=== PATIENT | male | born 1945 | race African-American/Black ===

== ENCOUNTER 2017-07-12 11:07 | Emergency (ER) | payer MEDICARE, OTHER ==
[~2017-07-12] VITALS: Ht 180.3 cm; Wt 85.3 kg
[~2017-07-12 11:07] MED LIST: AMLO10TA4 PO; ASPI325T2 PO; LISI10TA5 PO; METO100T PO; SIMV40TA2 PO
--- NOTE | 2017-07-12 11:10 | NUR ---
PT BIBRA FROM HOME TO ER BED 10. PT STATES FELT DIZZY AND FELL BACKWARDS HITTING HIS HEAD IN THE CONCRETE. PT DENIES HEADACHE, NO OBVIOUS TRAUMA. DENIES CHEST PAIN. 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 GOWNED AND PLACED ON MONITOR. AWAITING MD ERAZO.
--- NOTE | 2017-07-12 11:12 | NUR ---
DR LEBLANC AT BEDSIDE FOR EVAL.
--- NOTE | 2017-07-12 11:55 | NUR ---
RADIOLOGY AT BEDSIDE FOR EVAL.
[2017-07-12] MEDS ORDERED: IV NS 0.9% 1,000 ML BAG IV ONE (12:00)
[2017-07-12 12:15] LABS: BASOPHILS % (AUTO) 0.3 % (0.0-2.0); EOSINOPHILS # (AUTO) 0.1 /CMM (0.0-0.7); EOSINOPHILS % (AUTO) 1.4 % (0.0-6.0); HEMATOCRIT 43 % (39-51); HEMOGLOBIN 14.1 g/dL (13.5-17.5); LYMPHOCYTES % (AUTO) 21.4 % (20.0-44.0); MEAN CORPUSCULAR HEMOGLOBIN 29 PG (26.0-33.0); MEAN CORPUSCULAR HGB CONC 33 g/dl (31.0-36.0); MEAN CORPUSCULAR VOLUME 88 fL (80-96); MONOCYTES # (AUTO) 0.5 /CMM (0.1-1.30); NEUTROPHILS # (AUTO) 3.3 /CMM (1.8-8.9); NEUTROPHILS % (AUTO) 66.9 % (43.0-81.0); PLATELET COUNT (AUTO) 189 /CMM (150-450); RDW COEFFICIENT OF VARIATION 14.7 (11.5-15.0); WHITE BLOOD COUNT (AUTO) 4.9 K/uL (4.3-11.0)
[2017-07-12 12:41] LABS: TROPONIN I < 0.017 ng/mL (0.00-0.056)
[2017-07-12 12:57] LABS: PROTHROMBIN TIME 10.4 SECS (9.5-12.7)
[2017-07-12 12:59] LABS: ALANINE AMINOTRANSFERASE 17 U/L (12-78); ALBUMIN 3.4 g/dL (3.4-5.0); ALKALINE PHOSPHATASE 54 U/L (46-116); ASPARTATE AMINOTRANSFERASE 13 U/L (15-37); BILIRUBIN,DIRECT 0.1 mg/dL (0.0-0.2); BILIRUBIN,TOTAL 0.7 mg/dL (0.2-1.0); CALCIUM, SERUM 8.9 mg/dL (8.5-10.1); CARBON DIOXIDE 28 mmol/L (21-32); CHLORIDE 110 mmol/L (98-107); GLUCOSE 94 mg/dL (74-106); POTASSIUM 4.2 mmol/L (3.5-5.1); SODIUM SERUM 146 mmol/L (136-145); TOTAL PROTEIN, SERUM 6.9 g/dL (6.4-8.2); UREA NITROGEN, BLOOD 19 mg/dL (7-18)
--- NOTE | 2017-07-12 13:15 | NUR ---
PT TO RADIOLOGY FOR HEAD CT SCAN VIA [facility].
--- NOTE | 2017-07-12 13:56 | NUR ---
Patient discharged to home in stable condition. Written and verbal after care instructions given. Patient verbalizes understanding of instruction.IV removed. Catheter intact and site benign. Pressure and 4x4 applied to site. No bleeding noted.
[2017-07-12 13:57] VITALS: BP 125/80
[2017-07-12 14:28] LABS: APPEARANCE,URINE Clear (CLEAR); BILIRUBIN,URINE Negative (NEGATIVE); BLOOD, URINE Negative Ery/uL (NEGATIVE); COLOR,URINE Yellow (YELLOW); KETONES,URINE Negative (NEGATIVE); LEUKOCYTE ESTERASE ,URINE Negative (NEGATIVE); NITRITE, URINE Negative (NEGATIVE); PH,URINE 6.5 (5.0-8.0); PROTEIN,URINE Negative (NEGATIVE); UGLUCOSE Negative (NEGATIVE)
== END 2017-07-12 13:57 | disposition home or self-care (01) ==
LOC: ER 11:10
DX: R55 Syncope and collapse (principal); E86.0 Dehydration; I10 Essential (primary) hypertension; I25.10 Atherosclerotic heart disease of native coronary artery without angina pectoris; Z79.82 Long term (current) use of aspirin; Z86.73 Personal history of transient ischemic attack (TIA), and cerebral infarction without residual deficits; Z95.5 Presence of coronary angioplasty implant and graft
CPT/HCPCS: 36415; 70450-TC; 71010-TC; 80048-TC; 80076-TC; 81000-TC; 83605-TC; 84484-TC; 85025-TC; 85730-TC; A4606; G0480; J7030; Z7610

== ENCOUNTER 2021-07-25 16:26 | Inpatient (IN) | payer BC, OTHER ==
[~2021-07-25] VITALS: Ht 210.8 cm; Wt 70.8 kg
[~2021-07-25 16:26] MED LIST changes: +ASPI-992 PO; -ASPI325T2 PO; +LISI10TA29 PO; -LISI10TA5 PO
[2021-07-25] MEDS ORDERED: FLUO20CA42 PO (16:33)
--- NOTE | 2021-07-25 16:38 | NUR ---
TO ER BED 6, C/O WEAKNESS FOR 4DAYS NOW PER , ATTACHED TO MONITOR, CHANGED INTO A GOWN, AWAITING MD ERAZO
[2021-07-25] MEDS ORDERED: IV NS 0.9% 500 ML BAG IV ONE (17:30)
[2021-07-25 17:38] LABS: BASOPHILS % (AUTO) 0.4 % (0.0-2.0); EOSINOPHILS % (AUTO) 1.7 % (0.0-6.0); HEMATOCRIT 35 % (39-51); HEMOGLOBIN 11.5 g/dL (13.5-17.5); LYMPHOCYTES # (AUTO) 1.2 K/uL (0.8-4.8); LYMPHOCYTES % (AUTO) 20.9 % (20.0-44.0); MEAN CORPUSCULAR HGB CONC 33 g/dl (31.0-36.0); MEAN CORPUSCULAR VOLUME 90 fL (80-96); MONOCYTES # (AUTO) 0.6 K/uL (0.1-1.30); MONOCYTES % (AUTO) 9.8 % (2.0-12.0); NEUTROPHILS # (AUTO) 3.9 K/uL (1.8-8.9); NEUTROPHILS % (AUTO) 67.2 % (43.0-81.0); PLATELET COUNT (AUTO) 171 K/uL (150-450); RED BLOOD CELL COUNT(AUTO) 3.88 MIL/uL (4.5-6.0); WHITE BLOOD COUNT (AUTO) 5.7 K/uL (4.3-11.0)
[2021-07-25 17:47] LABS: CALCIUM, SERUM 8.4 mg/dL (8.5-10.1); CREATININE 1.3 mg/dL (0.6-1.3); POTASSIUM 4.3 mmol/L (3.5-5.1)
[2021-07-25 17:53] LABS: BILIRUBIN,DIRECT 0.1 mg/dL (0.0-0.2); BILIRUBIN,TOTAL 0.4 mg/dL (0.2-1.0); TOTAL PROTEIN, SERUM 6.7 g/dL (6.4-8.2)
--- NOTE | 2021-07-25 17:58 | NUR ---
MOVE SHEET SUBMITTED.
--- NOTE | 2021-07-25 18:04 | NUR ---
URINE COLLECTED AND SENT TO LAB
--- NOTE | 2021-07-25 18:06 | NUR ---
COVID SWAB DONE AND SENT
[2021-07-25 18:29] LABS: BILIRUBIN,URINE NEGATIVE (NEGATIVE); COLOR,URINE YELLOW (YELLOW); LEUKOCYTE ESTERASE ,URINE NEGATIVE (NEGATIVE); NITRITE, URINE NEGATIVE (NEGATIVE); PROTEIN,URINE NEGATIVE (NEGATIVE); UGLUCOSE NEGATIVE (NEGATIVE); UROBILINOGEN,URINE 0.2 EU/dL (0.2)
[2021-07-25 18:35] LABS: BACTERIA,URINE None seen /HPF (None Seen); SQUAMOUS EPITHELIAL CELL,UR 0-2 /HPF (None Seen); WBC,URINE 0-2 /HPF (0-3)
[2021-07-25] MEDS ORDERED: FUROSEMIDE 40 MG/4 ML VIAL IV ONE (19:00)
[2021-07-25] MEDS ORDERED: FUROSEMIDE 40 MG/4 ML VIAL ONE (19:36)
[2021-07-25] MEDS ORDERED: LORAZEPAM INJ 2 MG/ML VIAL IV ONE (21:30)
[2021-07-25] MEDS ORDERED: LORAZEPAM INJ 2 MG/ML VIAL ONE (21:35)
--- NOTE | 2021-07-25 22:00 | NUR ---
pt uncooperative, beginning to act differently, confused states he has hx of dementia. pt agitated, vss. medicated with ativan 0.5mg iv as ordered by
--- NOTE | 2021-07-25 22:52 | NUR ---
FACE SHEET QAND CLINICALS WERE FAXED TO [facility] AT [phone]
--- NOTE | 2021-07-25 23:28 | NUR ---
[employer] SAF[employer] BELT INSTALLER CLAUS [phone]
[2021-07-26] MEDS ORDERED: LORAZEPAM INJ 2 MG/ML VIAL IV ONE (01:00)
[2021-07-26] MEDS ORDERED: LORAZEPAM INJ 2 MG/ML VIAL ONE (01:03)
--- NOTE | 2021-07-26 01:13 | NUR ---
recieved authorization from jonnie to admit for observation
--- NOTE | 2021-07-26 01:30 | NUR ---
pt begining to get agitated, again increased heart rate, confused. medicated with ativan 0.5mg iv as ordered by
[2021-07-26] MEDS ORDERED: MAG HYDROX/AL HYDROX/SIMETH 30 ML UDC PO PRN (02:00)
[2021-07-26] MEDS ORDERED: ACETAMINOPHEN 325 MG TABLET PO PRN (02:00)
[2021-07-26] MEDS ORDERED: Z GUARD REMEDY 2 OZ OINT TP PRN (02:00)
[2021-07-26] MEDS ORDERED: MAGNESIUM HYDROXIDE 30 ML UDC PO PRN (02:00)
[2021-07-26] MEDS ORDERED: ONDANSETRON HCL/PF 4 MG/2 ML VIAL IVP PRN (02:00)
[2021-07-26] MEDS ORDERED: ZOLPIDEM TARTRATE 5 MG TABLET PO PRN (02:00)
[2021-07-26] MEDS ORDERED: MECO10005 PO (03:20)
[2021-07-26] MEDS ORDERED: TAMS-12 PO (03:20)
[2021-07-26] MEDS ORDERED: RIVA1PAT3 TD (03:20)
[2021-07-26] MEDS ORDERED: LORAZEPAM 0.5 MG TABLET PO PRN (04:30)
--- NOTE | 2021-07-26 05:43 | NUR ---
pt calm, resting in bed at this time. with warm blankets. no distress noted, will cont to monitor
--- NOTE | 2021-07-26 07:31 | NUR ---
CLOSING NOTE PT REMAINS IN BED, RESTING. NO DISTRESS NOTED. BREATHING EVEN AND UNLABORED. ALL NEEDS ATTENDED. REPORT GIVEN TO DAY SHIFT RN FOR CONTINUATION OF CARE.
--- NOTE | 2021-07-26 08:02 | NUR ---
THE PATIENT IS RECEIVED IN ER BED #6. SLEEPING BUT EASILY RESPONSIVE TO VERBAL STIMULI. IN ROOM AIR. RESPIRATION REGULAR AND UNLABORED. ATTACHED TO THE MONITOR. WARM BLANKET PROVIDED FOR COMFORT. WILL CONTINUE TO MONITOR THE PATIENT.
[2021-07-26] MEDS ORDERED: METOPROLOL TARTRATE 50 MG TABLET ONE (08:55)
[2021-07-26] MEDS ORDERED: ASPIRIN 325 MG TABLET ONE (08:55)
[2021-07-26] MEDS ORDERED: AMLODIPINE BESYLATE 10 MG TABLET ONE (08:55)
[2021-07-26] MEDS ORDERED: FLUOXETINE HCL 20 MG CAPSULE PO SCH (09:00)
[2021-07-26] MEDS ORDERED: SIMVASTATIN 40 MG TABLET PO SCH ×2 (09:00)
[2021-07-26] MEDS: METOPROLOL TARTRATE 50 MG TABLET PO SCH ×2 (09:09→21:59)
[2021-07-26] MEDS: AMLODIPINE BESYLATE 10 MG TABLET PO SCH (09:10)
[2021-07-26] MEDS: LISINOPRIL (10MG) 10 MG TABLET PO SCH (09:10)
[2021-07-26] MEDS: ASPIRIN 325 MG TABLET PO SCH (09:11)
--- NOTE | 2021-07-26 09:37 | NUR ---
FAMILY AT BEDSIDE
--- NOTE | 2021-07-26 09:48 | NUR ---
ROOM 308-1
--- NOTE | 2021-07-26 10:14 | NUR ---
REPORT GIVEN TO NURSE SONG FROM MS/TELE FLOOR
[2021-07-26 10:21] VITALS: BP 160/96
--- NOTE | 2021-07-26 10:21 | NUR ---
MS PAYROLL SUPERVISOR NOTES RECEIVED PATIENT FROM ER, AWAKE AND A/O X1, CONFUSED. ON ROOM AIR WITH NO SOB NOTED. NOT IN DISTRESS. WITH NO SIGNS OF PAIN OR DISCOMFORT NOTED, WITH IV ACCESS AT RIGHT HAND G20, SALINE LOCKED, INTACT AND PATENT. MADE COMFORTABLE ON BED. SAFETY MEASURES IN PLACED. CALL LIGHT WITHIN REACH. BED ON LOWEST AND LOCKED POSITION WITH SIDE RAILS UP X2. WILL CONTINUE TO MONITOR.
[2021-07-26 13:00] VITALS: BP 160/96
[2021-07-26] MEDS ORDERED: hydrALAZINE HCL IV 20 MG VIAL IV PRN (15:00)
[2021-07-26 16:00] VITALS: BP 148/89
[2021-07-26] MEDS: DIVALPROEX SODIUM 125 MG CAP.SPRINK PO SCH (16:34)
[2021-07-26] MEDS: hydrALAZINE HCL 25 MG TABLET PO SCH ×2 (16:37→21:59)
--- NOTE | 2021-07-26 18:27 | NUR ---
MS RN CLOSING NOTES PATIENT AWAKE AND A/O X1, CONFUSED WITH AT BEDSIDE. ON ROOM AIR WITH NO SOB NOTED. NOT IN DISTRESS. WITH NO SIGNS OF PAIN OR DISCOMFORT NOTED, WITH IV ACCESS AT RIGHT HAND G20, SALINE LOCKED, INTACT AND PATENT. SAFETY MEASURES IN PLACED. CALL LIGHT WITHIN REACH. BED ON LOWEST AND LOCKED POSITION WITH SIDE RAILS UP X2. WILL ENDORSE TO NEXT SHIFT FOR BRYCE.
--- NOTE | 2021-07-26 19:50 | NUR ---
MS RN OPENING NOTE PATIENT SLEEPING IN BED, RESPONDS TO NAME AND TOUCH, CONFUSED. PT APPEARS COMFORTABLE, NO S/S THAT HE'S IN PAIN OR DISCOMFORT. PT STABLE ON RA, NO S/S OF DISTRESS OR SOB NOTED, BREATHING EVEN AND UNLABORED. RIGHT HAND #20G INTACT AND SALINE LOCKED. SAFETY MEASURES IN PLACE: CALL LIGHT WITHIN REACH, SIDE RAILS UP X 3, BED LOCKED IN LOW POSITION, HOB ELEVATED, BED ALARM ON. WILL CONTINUE TO MONITOR PATIENT
[2021-07-26 20:00] VITALS: BP 135/83
[2021-07-26] MEDS: SIMVASTATIN 20 MG TABLET PO SCH (21:59)
[2021-07-26] MEDS ORDERED: OLANZAPINE 2.5 MG TABLET PO SCH (22:00)
[2021-07-27] MEDS: hydrALAZINE HCL 25 MG TABLET PO SCH ×3 (04:57→21:11)
[2021-07-27 06:58] LABS: BASOPHILS % (AUTO) 0.2 % (0.0-2.0); EOSINOPHILS % (AUTO) 0.3 % (0.0-6.0); HEMATOCRIT 40 % (39-51); HEMOGLOBIN 13.3 g/dL (13.5-17.5); LYMPHOCYTES # (AUTO) 0.8 K/uL (0.8-4.8); LYMPHOCYTES % (AUTO) 8.8 % (20.0-44.0); MEAN CORPUSCULAR HGB CONC 33 g/dl (31.0-36.0); MEAN CORPUSCULAR VOLUME 90 fL (80-96); MONOCYTES # (AUTO) 0.7 K/uL (0.1-1.30); MONOCYTES % (AUTO) 7.8 % (2.0-12.0); NEUTROPHILS # (AUTO) 7.6 K/uL (1.8-8.9); NEUTROPHILS % (AUTO) 82.9 % (43.0-81.0); PLATELET COUNT (AUTO) 191 K/uL (150-450); WHITE BLOOD COUNT (AUTO) 9.2 K/uL (4.3-11.0)
[2021-07-27 07:19] LABS: CALCIUM, SERUM 8.7 mg/dL (8.5-10.1); CARBON DIOXIDE 20 mmol/L (21-32); CHLORIDE 107 mmol/L (98-107); CREATININE 2.1 mg/dL (0.6-1.3); GLUCOSE 100 mg/dL (74-106); MAGNESIUM 2.6 mg/dL (1.8-2.4); PHOSPHORUS 3.8 mg/dL (2.5-4.9); SODIUM SERUM 137 mmol/L (136-145); UREA NITROGEN, BLOOD 34 mg/dL (7-18)
[2021-07-27 07:21] LABS: CHOLESTEROL 134 mg/dL (<200); HDL CHOLESTEROL 75 mg/dL (40-60); LDL 52 mg/dL (0-99); TRIGLYCERIDES 40 mg/dL (30-150)
--- NOTE | 2021-07-27 07:28 | NUR ---
MS RN CLOSING NOTE PATIENT SLEEPING IN BED, PT APPEARS COMFORTABLE, NO S/S THAT HE'S IN PAIN OR DISCOMFORT. PT STABLE ON RA, NO S/S OF DISTRESS OR SOB NOTED, BREATHING EVEN AND UNLABORED. RIGHT HAND #20G INTACT AND SALINE LOCKED. MEDICATIONS GIVEN ORDERED, PT NEEDS MET THROUGHOUT SHIFT. SAFETY MEASURES IN PLACE: CALL LIGHT WITHIN REACH, SIDE RAILS UP X 3, BED LOCKED IN LOW POSITION, HOB ELEVATED, BED ALARM ON. ENDORSED TO DAY SHIFT NURSE FOR CONTINUITY OF CARE
--- NOTE | 2021-07-27 07:35 | NUR ---
MS/RN OPENING NOTES RECEIVED PATIENT ON BED SLEEPING EASILY AWAKEN BY NAME AND LIGHT TOUCH. PATIENT IS ON ROOM AIR. PATIENT IN NO APPARENT RESPIRATORY DISTRESS NOTED. NO SIGN AND SYMPTOM OF PAIN NOTED. WILL CONTINUE TO MONITOR.
[2021-07-27 08:00] VITALS: BP 167/92
[2021-07-27] MEDS: LISINOPRIL (10MG) 10 MG TABLET PO SCH (08:55)
[2021-07-27] MEDS: AMLODIPINE BESYLATE 10 MG TABLET PO SCH (08:55)
[2021-07-27] MEDS: DIVALPROEX SODIUM 125 MG CAP.SPRINK PO SCH ×3 (08:55→16:22)
[2021-07-27] MEDS: ASPIRIN 325 MG TABLET PO SCH (08:55)
[2021-07-27] MEDS: METOPROLOL TARTRATE 50 MG TABLET PO SCH ×2 (08:56→21:11)
--- NOTE | 2021-07-27 11:40 | NUR ---
RN NOTES KIDNEY ULTRASOUND RESULT LEFT KIDNEY AND URETER POSITIVE STONES BOTH KIDNEY HYDRONEPHROSIS AND WITH DISTENDED FULL BLADDER PER US TECHNelsy SHEA ORDER USE UROJECT TO PLACE ALMAGUER CATHETER NOTED AND CARRIED OUT.
[2021-07-27] MEDS ORDERED: LIDOCAINE 2% JEL UROJET 10 ML MM ONE (12:00)
--- NOTE | 2021-07-27 13:20 | NUR ---
RN NOTES ALMAGUER CATHETER WAS INSERTED AND INDWELLING WELL.
--- NOTE | 2021-07-27 13:35 | NUR ---
RN NOTES VTE SCORE >5 EVONNE SHEA DNP WAS AWARE, NO NEW ORDER AT THIS TIME.
[2021-07-27 15:19] LABS: BILIRUBIN,URINE NEGATIVE (NEGATIVE); COLOR,URINE YELLOW (YELLOW); LEUKOCYTE ESTERASE ,URINE NEGATIVE (NEGATIVE); NITRITE, URINE NEGATIVE (NEGATIVE); PROTEIN,URINE NEGATIVE (NEGATIVE); UGLUCOSE NEGATIVE (NEGATIVE); UROBILINOGEN,URINE 0.2 EU/dL (0.2)
[2021-07-27 15:29] LABS: BACTERIA,URINE 2+ /HPF (None Seen); RBC,URINE 51-80 /HPF (0-2); SQUAMOUS EPITHELIAL CELL,UR Few /HPF (None Seen); WBC,URINE 0-2 /HPF (0-3)
[2021-07-27 15:30] LABS: EOSINOPHIL,URINE None Seen
[2021-07-27 15:59] LABS: CREATININE, URINE 91.7 MG/DL (30.0-125.0); URINE TOTAL PROTEIN 27.7 mg/dL (0-11.9)
[2021-07-27 16:00] VITALS: BP 122/72
[2021-07-27] MEDS ORDERED: ENOXAPARIN SODIUM 40 MG/0.4 ML DISP.SYRIN SQ SCH (17:30)
[2021-07-27] MEDS ORDERED: PANTOPRAZOLE 40 MG VIAL IV SCH (17:30)
[2021-07-27] MEDS: RIVASTIGMINE TARTRATE 4.6 MG PATCH.TD24 TD SCH (17:57)
[2021-07-27] MEDS: BETHANECHOL CHLORIDE (10 MG) 10 MG TABLET PO SCH (17:57)
--- NOTE | 2021-07-27 19:10 | NUR ---
MS/RN CLOSING NOTES PATIENT IS ON BED, ALERT AND ORIENTED X 0-1. PATIENT IS ON ROOM AIR. PATIENT IN NO APPARENT RESPIRATORY DISTRESS NOTED. NO SIGN AND SYMPTOM OF PAIN NOTED AT THIS TIME. SEEN ND EXAMINED BY MD WITH ORDERS MADE AND CARRIED OUT. ALL DUE MEDICATIONS WAS GIVEN. IV ACCESS AT RIGHT HAND # 20 G PATENT AND INTACT. SAFETY PRECAUTIONS WAS IN PLACE. BED IN LOW POSITION AND LOCKED. SIDERAILS UP X2. CALL LIGHT WITHIN REACH. WILL ENDORSED TO STOPPER GRINDER FOR BRYCE.
[2021-07-27 20:00] VITALS: BP 126/78
--- NOTE | 2021-07-27 20:32 | NUR ---
MS/RN OPENING NOTE. NOTES PATIENT IS ON BED, ALERT AND ORIENTED X 0-1. PATIENT IS ON ROOM AIR. PATIENT IN NO APPARENT RESPIRATORY DISTRESS NOTED. NO SIGN AND SYMPTOM OF PAIN NOTED AT THIS TIME. SEEN ND EXAMINED BY MD WITH ORDERS MADE AND CARRIED OUT. ALL DUE MEDICATIONS WAS GIVEN.WITH THE PUDDING. IV ACCESS AT RIGHT HAND # 20 G PATENT AND INTACT. SAFETY PRECAUTIONS WAS IN PLACE. BED IN LOW POSITION AND LOCKED. SIDERAILS UP X2. CALL LIGHT WITHIN REACH.
[2021-07-27] MEDS: SIMVASTATIN 20 MG TABLET PO SCH (21:11)
[2021-07-27] MEDS: TAMSULOSIN 0.4 MG CAP.SR.24H PO SCH (21:11)
[2021-07-27] MEDS: ENOXAPARIN SODIUM 40 MG/0.4 ML DISP.SYRIN SQ SCH (21:19)
[2021-07-28] MEDS: hydrALAZINE HCL 25 MG TABLET PO SCH ×3 (05:00→21:00)
--- NOTE | 2021-07-28 07:05 | NUR ---
RN NOTES PATIENT RESTING IN BED W/ EYES CLOSED, ABLE TO BE AWAKENED. BREATHING EVEN AND UNLABORED, TOLERATING ROOM AIR. IV LINE INTACT AND PATENT. SAFETY MEASURES IN PLACE. WILL CONTINUE TO MONITOR.
[2021-07-28 07:33] LABS: BASOPHILS % (AUTO) 0.3 % (0.0-2.0); EOSINOPHILS % (AUTO) 0.6 % (0.0-6.0); HEMATOCRIT 37 % (39-51); LYMPHOCYTES # (AUTO) 1.2 K/uL (0.8-4.8); LYMPHOCYTES % (AUTO) 14.2 % (20.0-44.0); MEAN CORPUSCULAR HGB CONC 33 g/dl (31.0-36.0); MEAN CORPUSCULAR VOLUME 90 fL (80-96); MONOCYTES # (AUTO) 0.9 K/uL (0.1-1.30); MONOCYTES % (AUTO) 10.7 % (2.0-12.0); NEUTROPHILS # (AUTO) 6.2 K/uL (1.8-8.9); NEUTROPHILS % (AUTO) 74.2 % (43.0-81.0); PLATELET COUNT (AUTO) 178 K/uL (150-450); RED BLOOD CELL COUNT(AUTO) 4.05 MIL/uL (4.5-6.0); WHITE BLOOD COUNT (AUTO) 8.4 K/uL (4.3-11.0)
[2021-07-28] MEDS: METOPROLOL TARTRATE 50 MG TABLET PO SCH ×2 (09:00→21:35)
[2021-07-28] MEDS: AMLODIPINE BESYLATE 10 MG TABLET PO SCH (09:00)
[2021-07-28 09:06] LABS: ALANINE AMINOTRANSFERASE 9 U/L (12-78); ALBUMIN 2.5 g/dL (3.4-5.0); ALKALINE PHOSPHATASE 51 U/L (46-116); ASPARTATE AMINOTRANSFERASE 14 U/L (15-37); BILIRUBIN,TOTAL 0.6 mg/dL (0.2-1.0); CALCIUM, SERUM 8.1 mg/dL (8.5-10.1); CARBON DIOXIDE 24 mmol/L (21-32); CHLORIDE 109 mmol/L (98-107); CREATININE 1.8 mg/dL (0.6-1.3); GLUCOSE 99 mg/dL (74-106); MAGNESIUM 2.3 mg/dL (1.8-2.4); PHOSPHORUS 3.6 mg/dL (2.5-4.9); POTASSIUM 3.5 mmol/L (3.5-5.1); SODIUM SERUM 142 mmol/L (136-145); TOTAL PROTEIN, SERUM 6.3 g/dL (6.4-8.2); UREA NITROGEN, BLOOD 42 mg/dL (7-18)
--- NOTE | 2021-07-28 09:30 | NUR ---
RN NOTES DAVID TODD PICKED UP PATIENT FOR CT PROCEDURE AND RETURNED PATIENT VIA GURNEY.
[2021-07-28] MEDS: BETHANECHOL CHLORIDE (10 MG) 10 MG TABLET PO SCH ×3 (10:00→17:24)
[2021-07-28] MEDS: ASPIRIN 325 MG TABLET PO SCH (10:00)
[2021-07-28] MEDS: DIVALPROEX SODIUM 125 MG CAP.SPRINK PO SCH ×3 (10:00→17:24)
[2021-07-28] MEDS: RIVASTIGMINE TARTRATE 4.6 MG PATCH.TD24 TD SCH (10:00)
[2021-07-28] MEDS: PANTOPRAZOLE 40 MG VIAL IV SCH (10:00)
[2021-07-28 10:46] LABS: CREATINE KINASE, TOTAL 133 U/L (39-308)
--- NOTE | 2021-07-28 12:00 | NUR ---
RN NOTES CAREGIVER AT BEDSIDE ASSISTING PATIENT W/ FEEDING.
[2021-07-28] MEDS ORDERED: ENSURE ENLIVE 237 ML LIQUID (VANILLA) PO SCH (12:30)
[2021-07-28] MEDS: ENSURE ENLIVE 237 ML LIQUID (VANILLA) PO SCH ×2 (16:39→16:40)
[2021-07-28] MEDS: CEFTRIAXONE 1 G in IV D5W 50 ML IV SCH (18:05)
--- NOTE | 2021-07-28 19:00 | NUR ---
RN NOTES NEW ORDER OF ROCEPHIN NOTED. ADMINISTERED INDICATED; DUE MEDS GIVEN THROUGHOUT THE SHIFT. ALMAGUER CATH IN PLACE, DRAINING YELLOW-COLORED URINE. ASSISTED W/ FEEDING AND ADL'S TOLERATED. SAFETY MEASURES MAINTAINED. WILL ENDORSE TO SORTING AND FOLDING SUPERVISOR RN FOR BRYCE.
--- NOTE | 2021-07-28 19:49 | NUR ---
MS RN OPENING RECEIVED PATIENT IN BED WITH EYES CLOSED, EASY TO AROUSE. A/OX1. NO APPARENT DISTRESS ON ROOM AIR. DENIES PAIN. NO FLUIDS RUNNING AT THIS TIME. SAFETY IN PLACE. WILL CONT. TO MONITOR.
[2021-07-28 20:00] VITALS: BP 107/62
[2021-07-28] MEDS: ENOXAPARIN SODIUM 40 MG/0.4 ML DISP.SYRIN SQ SCH (21:36)
[2021-07-28] MEDS: TAMSULOSIN 0.4 MG CAP.SR.24H PO SCH (21:37)
[2021-07-28] MEDS: SIMVASTATIN 20 MG TABLET PO SCH (21:37)
--- NOTE | 2021-07-28 21:47 | NUR ---
MS RN NOTE APRESOLINE NON-ADMIN. BP - 107/62 P- 74 AND PATIENT ALREADY HAS LOPRESSOR WELL. METOPROLOL WAS GIVEN.
[2021-07-29 04:55] VITALS: BP 120/64
[2021-07-29] MEDS: hydrALAZINE HCL 25 MG TABLET PO SCH (05:00)
--- NOTE | 2021-07-29 05:05 | NUR ---
MS RN NOTE Apresoline held. Patient bp- 120/64 p- 68 this am. Patient also has IV apresoline PRN. Patient has 0900 Scheduled Metropolol as well. will endorse to Morning shift RN.
[2021-07-29 06:19] LABS: BASOPHILS % (AUTO) 0.1 % (0.0-2.0); EOSINOPHILS % (AUTO) 0.7 % (0.0-6.0); HEMATOCRIT 37 % (39-51); LYMPHOCYTES # (AUTO) 1.4 K/uL (0.8-4.8); LYMPHOCYTES % (AUTO) 17.8 % (20.0-44.0); MEAN CORPUSCULAR HGB CONC 33 g/dl (31.0-36.0); MEAN CORPUSCULAR VOLUME 90 fL (80-96); MONOCYTES # (AUTO) 0.9 K/uL (0.1-1.30); MONOCYTES % (AUTO) 10.8 % (2.0-12.0); NEUTROPHILS # (AUTO) 5.6 K/uL (1.8-8.9); NEUTROPHILS % (AUTO) 70.6 % (43.0-81.0); PLATELET COUNT (AUTO) 189 K/uL (150-450); WHITE BLOOD COUNT (AUTO) 7.9 K/uL (4.3-11.0)
--- NOTE | 2021-07-29 06:39 | NUR ---
MS RN CLOSING NOTE PATIENT IN BED WITH EYES CLOSED, EASY TO AROUSE. A/OX1. DOES NOT EXHIBIT APPARENT DISTRESS TOLERATING ROOM AIR. NOT EXHIBITING PAIN VIA FLACC. NO FLUID RUNNING AT THIS TIME. ALL NEEDS ATTENDED. ALL SCHEDULED MEDICATIONS ADMINISTERED. NO SIGNIFICANT CHANGE SINCE LAST SHIFT. SAFETY KEPT IN PLACE THE WHOLE SHIFT. WILL ENDORSE CARE TO MORNING SHIFT RN.
[2021-07-29 07:31] LABS: CALCIUM, SERUM 8.5 mg/dL (8.5-10.1); CARBON DIOXIDE 27 mmol/L (21-32); CHLORIDE 109 mmol/L (98-107); GLUCOSE 103 mg/dL (74-106); MAGNESIUM 2.2 mg/dL (1.8-2.4); POTASSIUM 4.2 mmol/L (3.5-5.1); SODIUM SERUM 144 mmol/L (136-145); UREA NITROGEN, BLOOD 44 mg/dL (7-18)
[2021-07-29 07:52] LABS: CREATININE 1.9 mg/dL (0.6-1.3)
[2021-07-29 08:00] VITALS: BP 136/71
--- NOTE | 2021-07-29 08:00 | NUR ---
RN OPENING NOTE PT AWAKE IN BED RESTING. ON RA WITH NO SOB OR RESPIRATORY DISTRESS PRESENT. NON VERBAL, A/O X1. NO COMPLAINT OF PAIN OR NAUSEA. ON BEDREST WITH DIAPER PRESENT. NO EDEMA PRESENT. NO CIRCUS RIDER. NO SKIN ISSUES PRESENT. IV PRESENT ON R HAND 20G AND FLUSHES WELL. SALINE LOCKED. LABS AND ORDERS REVIEWED. SAFETY MEASURES IN PLACE. SIDE RAILS RAISED. BED LOWERED. CALL LIGHT WITHIN REACH. WILL CONTINUE TO MONITOR.
[2021-07-29] MEDS: PANTOPRAZOLE 40 MG VIAL IV SCH (09:03)
[2021-07-29] MEDS: ASPIRIN 325 MG TABLET PO SCH (09:04)
[2021-07-29] MEDS: DIVALPROEX SODIUM 125 MG CAP.SPRINK PO SCH ×3 (09:04→16:54)
[2021-07-29] MEDS: AMLODIPINE BESYLATE 10 MG TABLET PO SCH (09:04)
[2021-07-29] MEDS: BETHANECHOL CHLORIDE (10 MG) 10 MG TABLET PO SCH ×3 (09:05→16:54)
[2021-07-29] MEDS: RIVASTIGMINE TARTRATE 4.6 MG PATCH.TD24 TD SCH (09:05)
[2021-07-29] MEDS: ENSURE ENLIVE 237 ML LIQUID (VANILLA) PO SCH ×2 (09:07→16:54)
[2021-07-29] MEDS: METOPROLOL TARTRATE 50 MG TABLET PO SCH ×2 (09:07→22:14)
[2021-07-29 16:00] VITALS: BP 151/74
[2021-07-29] MEDS: CEFTRIAXONE 1 G in IV D5W 50 ML IV SCH (18:17)
--- NOTE | 2021-07-29 18:37 | NUR ---
RN CLOSING NOTE PT AWAKE IN BED RESTING. ON RA WITH NO SOB OR RESPIRATORY DISTRESS PRESENT. NON VERBAL, A/O X1. NO COMPLAINT OF PAIN OR NAUSEA. ON BEDREST WITH DIAPER PRESENT. NO EDEMA PRESENT. NO TIMBER PACKER. NO SKIN ISSUES PRESENT. F/C PRESENT. IV PRESENT ON R HAND 20G AND FLUSHES WELL. SALINE LOCKED. LABS AND ORDERS REVIEWED. SAFETY MEASURES IN PLACE. SIDE RAILS RAISED. BED LOWERED. CALL LIGHT WITHIN REACH. WILL Addendum: 07/29/21 at 1839 by LUCIA COMER RN WILL GIVE REPORT TO NIGHT NURSE FOR BRYCE
--- NOTE | 2021-07-29 19:30 | NUR ---
MS RN OPENING NOTES: RECEIVED PATIENT AWAKE IN BED, BED IN LOW POSITION, CALL LIGHTS WITHIN REACH, NO COMPLAIN OF PAIN AND DISCOMFORT AT THIS TIME, PATIENT IS A/OX1 WITH EPISODE OF CONFUSION, FEEDER, ON CRUSH MEDICATIONS, WITH T HAND G 20 IV LINE SL, ON URINE OUTPUT MONITORING WITH 200 CC URINE OUTPUT JONATHAN, PATIENT KEPT CLEAN AND DRY, ON RA NO SOB NOTED WILL CONTINUE TO MONITOR.
--- NOTE | 2021-07-29 19:39 | NUR ---
RN NOTE PT CALLED. REQUESTS DIFFERENT HOSPITAL D/T COMPLAINTS WITH PROVIDER. CN AWARE. WILL CONTINUE TO MONITOR.
[2021-07-29 20:00] VITALS: BP 137/88
[2021-07-29] MEDS: TAMSULOSIN 0.4 MG CAP.SR.24H PO SCH (22:13)
[2021-07-29] MEDS: SIMVASTATIN 20 MG TABLET PO SCH (22:14)
[2021-07-29] MEDS: ENOXAPARIN SODIUM 40 MG/0.4 ML DISP.SYRIN SQ SCH (22:16)
[2021-07-30 06:36] LABS: BASOPHILS % (AUTO) 0.3 % (0.0-2.0); EOSINOPHILS % (AUTO) 2.7 % (0.0-6.0); HEMATOCRIT 35 % (39-51); HEMOGLOBIN 11.4 g/dL (13.5-17.5); LYMPHOCYTES # (AUTO) 1.2 K/uL (0.8-4.8); LYMPHOCYTES % (AUTO) 17.8 % (20.0-44.0); MEAN CORPUSCULAR HGB CONC 33 g/dl (31.0-36.0); MEAN CORPUSCULAR VOLUME 89 fL (80-96); MONOCYTES # (AUTO) 0.7 K/uL (0.1-1.30); MONOCYTES % (AUTO) 9.8 % (2.0-12.0); NEUTROPHILS # (AUTO) 4.6 K/uL (1.8-8.9); NEUTROPHILS % (AUTO) 69.4 % (43.0-81.0); PLATELET COUNT (AUTO) 196 K/uL (150-450); RED BLOOD CELL COUNT(AUTO) 3.91 MIL/uL (4.5-6.0); WHITE BLOOD COUNT (AUTO) 6.7 K/uL (4.3-11.0)
--- NOTE | 2021-07-30 06:50 | NUR ---
MS RN CLOSING NOTES: PATIENT PLACED IN BED COMFORTABLY, BED IN LOW POSITION, CALL LIGHTS WITHIN REACH, NO COMPLAIN OF PAIN AND DISCOMFORT AT THIS TIME, PATIENT ON MONITORING FOR URINE OUTPUT WITH 200CC URINE OUTPUT, NO DISCOMFORT ON THE LOWER ABDOMINAL AREA HAS BEEN OBSERVED, KEPT CLEAN AND DRY, ENDORSE TO INCOMING SHIFT..
[2021-07-30 07:18] LABS: CREATININE 1.2 mg/dL (0.6-1.3); MAGNESIUM 2.1 mg/dL (1.8-2.4); PHOSPHORUS 3.1 mg/dL (2.5-4.9); POTASSIUM 3.6 mmol/L (3.5-5.1)
[2021-07-30] MEDS: PANTOPRAZOLE 40 MG TABLET.DR PO SCH (07:30)
--- NOTE | 2021-07-30 07:43 | NUR ---
RN OPENING NOTE PT AWAKE IN BED RESTING. ON RA WITH NO SOB OR RESPIRATORY DISTRESS PRESENT. NON VERBAL, A/O X1. NO COMPLAINT OF PAIN OR NAUSEA. ON BEDREST WITH DIAPER PRESENT. NO EDEMA PRESENT. NO TEST GRADER. NO SKIN ISSUES PRESENT. IV PRESENT ON R HAND 20G AND FLUSHES WELL. SALINE LOCKED. LABS AND ORDERS REVIEWED. SAFETY MEASURES IN PLACE. SIDE RAILS RAISED. BED LOWERED. CALL LIGHT WITHIN REACH. WILL CONTINUE TO MONITOR.
[2021-07-30 08:00] VITALS: BP 159/88
[2021-07-30] MEDS: DIVALPROEX SODIUM 125 MG CAP.SPRINK PO SCH ×3 (08:54→16:17)
[2021-07-30] MEDS: BETHANECHOL CHLORIDE (10 MG) 10 MG TABLET PO SCH ×3 (08:54→16:17)
[2021-07-30] MEDS: ASPIRIN 325 MG TABLET PO SCH (08:54)
[2021-07-30] MEDS: RIVASTIGMINE TARTRATE 4.6 MG PATCH.TD24 TD SCH (08:55)
[2021-07-30] MEDS: ENSURE ENLIVE 237 ML LIQUID (VANILLA) PO SCH ×2 (08:55→16:17)
[2021-07-30] MEDS: METOPROLOL TARTRATE 50 MG TABLET PO SCH ×2 (09:43→21:05)
[2021-07-30] MEDS: AMLODIPINE BESYLATE 10 MG TABLET PO SCH (09:43)
--- NOTE | 2021-07-30 11:07 | NUR ---
RN NOTES THERON, PHYSICIAN UNDERWRITER, CALLED AND INFORMED THAT PATIENT WILL BE DISCHARGED TO HOME. PER CM, WILL HAVE PRIVATE TRANSPORTATION FOR PATIENT.
[2021-07-30 12:06] LABS: *SPE A/G RATIO 0.8 (0.7-1.7); *SPE ALPHA-1-GLOBULIN 0.4 g/dL (0.0-0.4); *SPE ALPHA-2-GLOBULIN 0.9 g/dL (0.4-1.0); *SPE M-SPIKE Not Observed g/dL (Not Observed)
[2021-07-30 16:00] VITALS: BP 105/69
--- NOTE | 2021-07-30 19:20 | NUR ---
RN NOTE PT AWAKE IN BED, A/O X1, VERBALLY RESPONSIVE WITH CONFUSION. REORIENTATION PROVIDED. RESPIRATIONS EVEN/UNLABORED, ON ROOM AIR. NO S/S OF PAIN OR DISCOMFORT NOTED. IV SITE: R-HAND #20G INTACT/PATENT/FLUSHES WELL. F/C #[address], DRAINING YELLOW COLORED URINE, NO HEMATURIA NOTED. PT IN NO ACUTE DISTRESS. SAFETY MEASURES IN PLACE, BED IN LOWEST LOCKED POSITION, S/R UPX2, CALL LIGHT WITHIN REACH. WILL CONT TO MONITOR.
[2021-07-30 20:00] VITALS: BP 133/87
--- NOTE | 2021-07-30 20:05 | NUR ---
RN NOTE PT IN STABLE CONDITION. LABS AND ORDERS REVIEWED. COMFORTABLE IN BED. REPORT GIVE TO NIGHT NURSE FOR BRYCE.
[2021-07-30] MEDS: TAMSULOSIN 0.4 MG CAP.SR.24H PO SCH (21:04)
[2021-07-30] MEDS: SIMVASTATIN 20 MG TABLET PO SCH (21:05)
[2021-07-30] MEDS: NITROFURANTOIN/NITROFURAN MONOHYDRATE 100 MG CAPSULE PO SCH (21:05)
[2021-07-30] MEDS: ENOXAPARIN SODIUM 40 MG/0.4 ML DISP.SYRIN SQ SCH (21:08)
[2021-07-31 06:46] LABS: BASOPHILS % (AUTO) 0.3 % (0.0-2.0); EOSINOPHILS % (AUTO) 1.5 % (0.0-6.0); HEMATOCRIT 35 % (39-51); HEMOGLOBIN 11.5 g/dL (13.5-17.5); LYMPHOCYTES # (AUTO) 1.3 K/uL (0.8-4.8); MEAN CORPUSCULAR HGB CONC 33 g/dl (31.0-36.0); MEAN CORPUSCULAR VOLUME 89 fL (80-96); MONOCYTES # (AUTO) 0.6 K/uL (0.1-1.30); MONOCYTES % (AUTO) 8.7 % (2.0-12.0); NEUTROPHILS # (AUTO) 4.7 K/uL (1.8-8.9); NEUTROPHILS % (AUTO) 69.5 % (43.0-81.0); PLATELET COUNT (AUTO) 213 K/uL (150-450); RED BLOOD CELL COUNT(AUTO) 3.94 MIL/uL (4.5-6.0); WHITE BLOOD COUNT (AUTO) 6.8 K/uL (4.3-11.0)
[2021-07-31 07:07] LABS: CALCIUM, SERUM 8.2 mg/dL (8.5-10.1); CREATININE 1.1 mg/dL (0.6-1.3); MAGNESIUM 2.1 mg/dL (1.8-2.4); PHOSPHORUS 3.5 mg/dL (2.5-4.9); POTASSIUM 3.7 mmol/L (3.5-5.1)
--- NOTE | 2021-07-31 07:26 | NUR ---
MS RN CLOSING NOTE PT RESTING IN BED, OPENS EYES TO STIMULI, A/OX1, VERBAL AND PLEASANT BUT CONFUSED. REORIENTATION PROVIDED. NO S/S OF PAIN NOTED. NO SOB. IV SITE ON RH #20 INTACT/PATENT/FLUSHES WELL. F/C INTACT, DRAINING YELLOW URINE, 550CC OUTPUT, NO HEMATURIA NOTED. PT SLEPT INTERMITTENTLY DURING THE NIGHT. NO ACUTE DISTRESS NOTED. SAFETY MEASURES MAINTAINED, BED IN LOWEST LOCKED POSITION, S/R UPX2, CALL LIGHT WITHIN REACH.
[2021-07-31] MEDS: PANTOPRAZOLE 40 MG TABLET.DR PO SCH (07:39)
[2021-07-31 08:00] VITALS: BP 157/85
[2021-07-31] MEDS: DIVALPROEX SODIUM 125 MG CAP.SPRINK PO SCH ×2 (08:44→12:11)
[2021-07-31] MEDS: NITROFURANTOIN/NITROFURAN MONOHYDRATE 100 MG CAPSULE PO SCH (08:44)
[2021-07-31] MEDS: ASPIRIN 325 MG TABLET PO SCH (08:44)
[2021-07-31] MEDS: BETHANECHOL CHLORIDE (10 MG) 10 MG TABLET PO SCH ×2 (08:44→12:11)
[2021-07-31] MEDS: AMLODIPINE BESYLATE 10 MG TABLET PO SCH (08:47)
[2021-07-31] MEDS: ENSURE ENLIVE 237 ML LIQUID (VANILLA) PO SCH (08:48)
[2021-07-31] MEDS: METOPROLOL TARTRATE 50 MG TABLET PO SCH (08:48)
[2021-07-31] MEDS: RIVASTIGMINE TARTRATE 4.6 MG PATCH.TD24 TD SCH (08:50)
[2021-07-31] MEDS ORDERED: BETH10TA4 PO (12:02)
[2021-07-31] MEDS ORDERED: RIVA1PAT TD (12:02)
[2021-07-31] MEDS ORDERED: NITR100C15 PO (12:02)
[2021-07-31] MEDS ORDERED: DIVA125C2 PO (12:02)
[2021-07-31 15:59] VITALS: BP 136/79
--- NOTE | 2021-07-31 16:05 | NUR ---
MS/RN NOTES PATIENT IS ON BED. PATIENT IS ON ROOM AIR. PATIENT IN NO APPARENT RESPIRATORY DISTRESS NOTED. NO SIGN AND SYMPTOM OF PAIN NOTED. SEEN AND EXAMINED BY MD WITH ORDERS MADE AND CARRIED OUT. ALL DUE MEDICATIONS WAS GIVEN. DISCHARGED INSTRUCTIONS WAS GIVEN AND VERBALIZED UNDERSTANDING. REPORT WAS GIVEN TO MICHELE GUNTER AT [facility]. PATIENT LEFT THE HOSPITAL IN MEDICALLY STABLE CONDITION, PASSENGER REPRESENTATIVE BY 2 EMT VIA AMBULANCE.
== END 2021-07-31 15:58 | DRG 77 ==
LOC: ER 16:29 → TRANSITION 07-26 03:35 → MED 07-26 10:04
PROVIDERS: ADMIT Nurse Practitioner Acute Care; ATTEND Student in an Organized Health Care Education/Training Program
DX: I67.4 Hypertensive encephalopathy (principal); I50.33 Acute on chronic diastolic (congestive) heart failure; N17.0 Acute kidney failure with tubular necrosis; G93.41 Metabolic encephalopathy; N13.6 Pyonephrosis; E44.0 Moderate protein-calorie malnutrition; Z68.1 Body mass index [BMI] 19.9 or less, adult; F05 Delirium due to known physiological condition; Z95.5 Presence of coronary angioplasty implant and graft; I11.0 Hypertensive heart disease with heart failure; Z79.82 Long term (current) use of aspirin; Z79.899 Other long term (current) drug therapy; Z20.822 Contact with and (suspected) exposure to COVID-19; N20.0 Calculus of kidney; E78.5 Hyperlipidemia, unspecified; D64.9 Anemia, unspecified; F17.200 Nicotine dependence, unspecified, uncomplicated; F32.9 Major depressive disorder, single episode, unspecified; I25.2 Old myocardial infarction; F01.50 Vascular dementia, unspecified severity, without behavioral disturbance, psychotic disturbance, mood disturbance, and anxiety; F29 Unspecified psychosis not due to a substance or known physiological condition; F25.9 Schizoaffective disorder, unspecified; B95.2 Enterococcus as the cause of diseases classified elsewhere; I10 Essential (primary) hypertension; F39 Unspecified mood [affective] disorder; R33.9 Retention of urine, unspecified; I25.10 Atherosclerotic heart disease of native coronary artery without angina pectoris; Z86.79 Personal history of other diseases of the circulatory system; R62.7 Adult failure to thrive
CPT/HCPCS: 36415; 70450-TC; 71045-TC; 76770-TC; 80048-TC; 80053-TC; 80061-TC; 80076-TC; 81001; 82550-TC; 82570-TC; 83735-TC; 83880; 83970; 84100-TC; 84155; 84155-TC; 84165; 84300-TC; 84484-TC; 85025-TC; 87081-TC; 87086-TC; 87186-TC; 93307-TC; 97112-TC; 97530-TC; C9113; C9803; G0378; J0360; J0696; J1650; J1940; J2060; J2405; J3490; J7060; L0172

== ENCOUNTER 2021-08-23 19:55 | Emergency (ER) | payer MEDICARE, OTHER ==
[~2021-08-23 19:55] MED LIST changes: +BETH10TA4 PO; +DIVA125C2 PO; +MECO10005 PO; +NITR100C15 PO; +RIVA1PAT TD; +RIVA1PAT3 TD; +TAMS-12 PO
--- NOTE | 2021-08-23 21:46 | NUR ---
ALMAGUER PUT BACK IN PLACE, Fr 16, URINE OUTPIT 100CC JONATHAN CLEAR
[2021-08-23 22:42] VITALS: BP 145/66
== END 2021-08-23 22:53 | disposition home or self-care (01) ==
LOC: ER 20:01
DX: Z46.6 Encounter for fitting and adjustment of urinary device (principal); I10 Essential (primary) hypertension; Z98.890 Other specified postprocedural states; Z79.899 Other long term (current) drug therapy; Z79.82 Long term (current) use of aspirin